=== PATIENT | male | born 1960 | race Hispanic/Latino ===

== ENCOUNTER 2017-03-12 08:05 | Observation (INO) | payer BC ==
[2017-03-12 08:12] VITALS: BMI 33.5
[2017-03-12 08:24] LABS: ADD MANUAL DIFF? NO
[2017-03-12 08:27] LABS: BASO # 0.07 K/mm3 (0.0-2.0); BASO % 0.8 % (0.0-3.0); EOS # 0.3 (0.0-0.7); EOS % 3.7 % (1.5-5.0); GRAN # 6.01 (1.4-6.5); GRAN % 66.9 % (50.0-68.0); HEMATOCRIT 45.9 % (42.0-52.0); LYMPH % 22.4 % (22.0-35.0); MEAN CELL VOLUME 94.8 fL (80.0-105.0); MEAN CORPUSCULAR HEMOGLOBIN 32.6 pg (25.0-35.0); MEAN CORPUSCULAR HGB CONC 34.4 g/dl (31.0-37.0); MEAN PLATELET VOLUME 9.5 fl (7.0-11.0); MONO # 0.6 (0.1-0.6); MONO % 6.2 % (1.0-6.0); PLATELET COUNT 279 10^3/uL (120.0-450.0); RED CELL DISTRIBUTION WIDTH 12.2 % (11.5-14.5)
[2017-03-12 08:36] LABS: ALB/GLOB RATIO 1.4 (1.1-1.8); ALKALINE PHOSPHATASE 54 U/L (38-133); ALT/SGPT 49 U/L (7-56); AST/SGOT 35 U/L (15-59); BILIRUBIN,TOTAL 0.9 mg/dL (0.2-1.3); BLOOD UREA NITROGEN 17 mg/dL (7-21); CALCIUM 9.3 mg/dL (8.4-10.5); CARBON DIOXIDE 29 mmol/L (21-33); CHLORIDE 101 mmol/L (98-107); GFR AFRICAN-AMERICAN > 60; GLUCOSE,RANDOM 117 mg/dL (70-110); MAGNESIUM 2.1 mg/dL (1.7-2.2); POTASSIUM 4.7 mmol/L (3.6-5.0); SODIUM 137 mmol/L (132-148); TOTAL PROTEIN 7.2 g/dL (5.8-8.3)
--- NOTE | 2017-03-12 08:36 | ED PDOC ---
Arrival/HPI - General Time Seen by Provider: 03/12/17 08:11 Historian: Patient - History of Present Illness Narrative History of Present Illness (Text): 03/12/17 08:12 A 56 year old male, newly diagnosed with hypertension and recently placed on Metoprolol, Lisinopril and Aspirin, sent in to the emergency department by PMD for admission and cardiac evaluation by Dr. Roach. Patient complains of intermittent chest discomfort since yesterday. Patient denies any relieving or exacerbating factors. Patient notes generalized weakness but denies any fever, chills, nausea, vomiting, diarrhea, abdominal pain, shortness of breath, cough or any other complaints. PMD: Dr. Ramires Time/Duration: Other (Yesterday) Symptom Course: Unchanged Quality: Other Context: Other Past Medical History - Provider Review Nursing Documentation Reviewed: Yes Family/Social History - Physician Review Nursing Documentation Reviewed: Yes Family/Social History: No Known Family HX Allergies/Home Meds Allergies/Adverse Reactions: Allergies No Known Allergies Allergy (Verified 03/12/17 08:12) Home Medications: Home Meds Medication Instructions Recorded Confirmed Aspirin [Aspirin Chewable] 81 mg PO DAILY 03/12/17 03/12/17 Lisinopril [Zestril] 5 mg PO DAILY 03/12/17 03/12/17 Metoprolol Succinate XL [Toprol XL] 25 mg PO DAILY 03/12/17 03/12/17 Physical Exam - Physical Exam Narrative Physical Exam (Text): - Review of Systems Constitutional: (+) Generalized weakness absent: Weight Change, Fevers Eyes: Normal ENT: Normal Respiratory: Normal absent: SOB, Cough, Sputum Cardiovascular: (+) Chest pain absent: Palpitations, Syncope Gastrointestinal: Normal absent: Abdominal pain, Diarrhea, Nausea, Vomiting Genitourinary: Normal. absent: Dysuria, Frequency, Hematuria Musculoskeletal: Normal. absent: Arthralgias, Back Pain, Neck Pain Skin: Normal Neurological: Normal absent: Focal Weakness Endocrine: Normal Hemo/Lymphatic: Normal Psychiatric: Normal - Physical exam Patient appears age appropriate, speaking full sentences without difficulty - Systems Exam Head: Present: Atraumatic, Normocephalic Pupils: Present: PERRL Extraocular Muscles: Present: EOMI Conjunctiva: Present: Normal Mouth: Present: Moist Mucous Membranes Neck: Present: Normal Range of Motion. No: MIDLINE TENDERNESS, Paraspinal Tenderness Respiratory/Chest: Present: Clear to Auscultation, Good Air Exchange. No: Respiratory Distress, Accessory Muscle Use, Tachypnic Cardiovascular: Present: Regular Rate and Rhythm, Normal S1, S2, Peripheral Pulses Present. No: Murmurs Abdomen: Present: Normal Bowel Sounds, No: Tenderness, Peritoneal Signs, Rebound, Guarding, Distention Back: Present: Normal Inspection. No: Midline Tenderness, Paraspinal Tenderness Upper Extremity: Present: Normal Inspection. No: Cyanosis, Edema Lower Extremity: Present: Normal Inspection. No: Edema Neurological: Present: GCS=15, Speech Normal, cranial nerves II through XII fully intact with no cerebellar abnormality, neuro-sensory fully intact. No focal neurological deficits. Skin: Present: Warm, Dry, Normal Color. No: Rashes Lymphatic: Present: OX3, NI, NC Psychiatric: Present: Alert, Oriented x 3, Normal Insight, Normal Concentration Vital Signs Reviewed: Yes Vital Signs Temp Pulse Resp BP Pulse Ox 03/12/17 08:21 98.1 F 62 16 110/73 96 Temperature: Afebrile Blood Pressure: Normal Pulse: Regular Respiratory Rate: Normal Appearance: Positive for: Well-Appearing, Non-Toxic, Comfortable Pain Distress: None Mental Status: Positive for: Alert and Oriented X 3 Medical Decision Making ED Course and Treatment: 03/12/17 08:12 Impression: A 56 year old male with chest discomfort. Physical exam unremarkable. Plan: -- Chest xray -- EKG -- Labs -- Aspirin -- Reassess and disposition Progress Notes: EKG shows NSR at [address]-segment elevations, normal intervals. Interpreted by me. Report Date : 03/12/2017 09:37:11 Procedure: Chest xray Dictator : Payam Brown MD IMPRESSION: No active disease. 03/12/17 09:[address] per [address] Dewitt dw Dr. Horner, accepted tele/obs under his service pt in no distress at this time, aware of and agrees with plan - Lab Interpretations Lab Results: 03/12/17 08:10 03/12/17 08:10 Lab Results 03/12/17 08:10: Sodium 137, Potassium 4.7, Chloride 101, Carbon Dioxide 29, Anion Gap 12, BUN 17, Creatinine 0.7, Est GFR ( Amer) > 60, Est GFR (Non- Af Amer) > 60, Random Glucose 117 H, Calcium 9.3, Phosphorus 3.0, Magnesium 2.1 , Total Bilirubin 0.9, AST 35, ALT 49, Alkaline Phosphatase 54, Lactate Dehydrogenase 316 L, Total Creatine Kinase 56, Troponin I < 0.01, NT-Pro-B Natriuret Pep 33.2, Total Protein 7.2, Albumin 4.2, Globulin 3.0, Albumin/ Globulin Ratio 1.4 03/12/17 08:10: PT 10.8, INR 1.00, APTT 28.8 03/12/17 08:10: WBC 9.0, RBC 4.84, Hgb 15.8, Hct 45.9, MCV 94.8, MCH 32.6, MCHC 34.4, RDW 12.2, Plt Count 279, MPV 9.5, Gran % 66.9, Lymph % (Auto) 22.4, [place] % (Auto) 6.2 H, Eos % (Auto) 3.7, Baso % (Auto) 0.8, Gran # 6.01, Lymph # 2.0, [place] # 0.6, Eos # 0.3, Baso # 0.07 - RAD Interpretation Radiology Orders: 03/12/17 08:12 CHEST PORTABLE [RAD] Stat - Medication Orders Current Medication Orders: Sodium Chloride (Sodium Chloride 0.9%) 1,000 mls @ 100 mls/hr IV .Q10H CARINA Discontinued Medications Aspirin (Aspirin Chewable) 324 mg PO STAT STA Stop: 03/12/17 08:13 Last Admin: 03/12/17 08:29 Dose: 324 mg - Scribe Statement The provider has reviewed the documentation as recorded by the Agapito Montero Provider Scribe Attestation: All medical record entries made by the Agapito were at my direction and personally dictated by me. I have reviewed the chart and agree that the record accurately reflects my personal performance of the history, physical exam, medical decision making, and the department course for this patient. I have also personally directed, reviewed, and agree with the discharge instructions and disposition. Disposition/Present on Arrival - Present on Arrival Any Indicators Present on Arrival: No - Disposition Have Diagnosis and Disposition been Completed?: Yes Diagnosis: Chest pain Disposition: HOSPITALIZED Disposition Time: 09:45 Patient Plan: Observation Patient Problems: Current Active Problems Problem Status Onset Chest pain Acute Condition: FAIR Discharge Instructions (ExitCare): Chest Pain (ED) Referrals: Gabriel Ramires MD [Primary Care Provider] - Follow up with primary
[2017-03-12 08:38] LABS: PARTIAL THROMBOPLASTIN TIME 28.8 Seconds (23.7-30.8)
[2017-03-12 08:48] LABS: TROPONIN I < 0.01 ng/mL
--- NOTE | 2017-03-12 09:38 | RAD ---
HISTORY: cough COMPARISON: No prior. FINDINGS: LUNGS: No active pulmonary disease. PLEURA: No significant pleural effusion identified, no pneumothorax apparent. CARDIOVASCULAR: Normal. OSSEOUS STRUCTURES: No significant abnormalities. VISUALIZED UPPER ABDOMEN: Normal. OTHER FINDINGS: None. IMPRESSION: No active disease.
[2017-03-12] MEDS: Sodium Chloride 0.9% 1,000 ML IV SCH (11:39)
--- NOTE | 2017-03-12 14:57 | CARD ---
APPROVED REPORT EKG Measurement Heart [id number] 142P2 [id number] <Conclusion> Normal sinus rhythm Normal ECG
[2017-03-12] MEDS ORDERED: Pneumococcal 23-Valent Vaccine IM ONE (16:03)
--- NOTE | 2017-03-12 20:27 | HP ---
CHIEF COMPLAINT AND HISTORY OF PRESENT ILLNESS: This is a 56-year-old male who is coming into the [facility] complaining of substernal atypical chest pain. He said that he has been having discomfort and had gone to see his primary care doctor, Dr. Ramires. He had recently been started on blood pressure medications. He was sent by Dr. Ramires for further evaluation. He has no complaints of any shortness of breath, no fevers or chills. He was placed on metoprolol, lisinopril and aspirin. He says the p ain has been intermittent. Denies any associated diaphoresis or shortness of breath, no headaches or dizziness. Nothing makes the pain better or worse. REVIEW OF SYSTEMS: All other review of symptoms are within normal limits except as mentioned. ALLERGIES: No known drug allergies. HOME MEDICATIONS: Aspirin, lisinopril, metoprolol. FAMILY HISTORY: No heart problems in the family. SOCIAL HISTORY: He does smoke actively half a pack to a pack per day. PAST MEDICAL HISTORY: Hypertension. PHYSICAL EXAMINATION: VITAL SIGNS: Temperature is 98.1, pulse of 56, blood pressure 136/84, respirations 16, O2 saturation 96%. Height is 5 feet 4, weight is 195 pounds, BMI is 33.5. GENERAL: Patient lying in bed, flat, and in no apparent distress. HEAD AND NECK EXAM: Atraumatic, normocephalic. Conjunctivae are pink. Throat clear and mouth with moist mucosa. Oropharynx benign. EYES: Extraocular movements are intact. PERRLA. NECK: Supple. No JVD, thyromegaly, or adenopathy. No bruits. HEART: S1 and S2 regular rate and rhythm. No murmurs, rubs, or gallops. LUNGS: Clear to auscultation bilaterally. No wheezing rales or rhonchi appreciated. No retraction s on exam. ABDOMEN: Soft, nontender, nondistended. Bowel sounds are positive in all quadrants. No rebound. No hepatosplenomegaly. EXTREMITIES: No cyanosis, clubbing, or edema. NEURO: No facial asymmetry, tongue is midline, no uvula deviation. Power is 5/5 in upper extremity and 5/5 in lower extremity. Sensation is normal in upper extremity and lower extremity. PSYCH: Awake, alert, oriented x3. No anxiety or depression symptoms. Good insight. Normal affec t. : No CVA tenderness VASCULAR: 2+ pulses in carotid and pedal pulses. SKIN: No erythema or abnormal nodules noted. SPINE: Normal curvature. LYMPHADENOPATHY: No anterior cervical or posterior cervical adenopathy. No inguinal adenopathy. LABORATORY DATA: White count of 9.0, hemoglobin 15.8. Troponin 0.01. Chest x-ray done shows no active disease. EKG shows sinus rhythm at 61, no ST-T changes. ASSESSMENT: 1. Chest pain. 2. Hypertension. 3. Obese with a body mass index of 33.5. PLAN: The patient is currently comfortable. He is going to be admitted for chest pain. I will get Dr. Roach to evaluate the patient. The patient is going to be on aspirin and metoprolol. He has be en placed on lisinopril for his hypertension. First troponin has been negative. Second troponin is pending. He will be on a regular diet. We will await further input from Dr. Roach. Brian Horner MD cc: [id number] TT: 03/12/2017 20:26:37 fl
--- NOTE | 2017-03-12 22:03 | CP.PCM.PN ---
Subjective - Date & Time of Evaluation Date of Evaluation: 03/12/17 Time of Evaluation: 22:03 - Subjective Subjective: S:Patient was seen at bedside because he wanted something for sleep. He has no other complaints at this time. Denies chest pain, sob , head ache , dizziness, nausea, sweating , palpitation. ROS negative except as mentioned above. Pertinent medical record was reviewed. O: Last Vital Signs 3 Temp 98.1 F 03/12/17 15:43 Pulse 70 03/12/17 21:29 Resp 17 03/12/17 19:16 BP 143/85 03/12/17 21:29 Pulse Ox 94 L 03/12/17 19:16 Awake, alert, overweight person not in acute distress. LUNGS: Normal breathing pattern. NEURO:Speech normal. A:Adjustment Insomnia. P:Ambien 10 mg PO x 1. Objective - Vital Signs/Intake and Output Vital Signs (last 24 hours): Temp Pulse Resp BP Pulse Ox 98.1 F 70 17 143/85 94 L 03/12/17 15:43 03/12/17 21:29 03/12/17 19:16 03/12/17 21:29 03/12/17 19:16 - Medications Medications: Current Medications Aspirin (Ecotrin) 81 mg PO DAILY [facility] Last Admin: 03/12/17 11:39 Dose: 81 mg Sodium Chloride (Sodium Chloride 0.9%) 1,000 mls @ 100 mls/hr IV .Q10H [facility] Last Admin: 03/12/17 11:39 Dose: 100 mls/hr Lisinopril (Zestril) 5 mg PO DAILY [facility] Last Admin: 03/12/17 12:04 Dose: 5 mg Metoprolol Tartrate (Lopressor) 25 mg PO Q12 [facility] Last Admin: 03/12/17 21:29 Dose: 25 mg - Labs Labs: PT 10.8 Seconds (9.9-11.8) 03/12/17 08:10 INR 1.00 (0.93-1.08) 03/12/17 08:10 APTT 28.8 Seconds (23.7-30.8) 03/12/17 08:10
[2017-03-13] MEDS: Sodium Chloride 0.9% 1,000 ML IV SCH ×3 (04:55→10:35)
--- NOTE | 2017-03-13 10:31 | PN ---
DATE: 03/13/2017 SUBJECTIVE: The patient has no complaints of any chest pain or shortness of breath, no headaches or dizziness. PHYSICAL EXAMINATION: VITAL SIGNS: Temperature is 98.3, pulse of 61, blood pressure 97/59, respirations 22. GENERAL: The patient comfortable, in no acute distress. HEENT: Anicteric sclerae. Moist mucosa. NECK: No JVD or adenopathy. CARDIAC: S1/S2. No murmurs. No rubs. Regular. RESPIRATORY: Clear to auscultation bilaterally. No wheezes, rales, or rhonchi. Good air entry. ABDOMEN: Bowel sounds are positive, soft, nontender, and nondistended. EXTREMITIES: No edema. Has 1+ pulses. LABORATORY DATA: White count of 9.0, hemoglobin 15.8, creatinine 0.7. ASSESSMENT: 1. Chest pain. 2. Hypertension. 3. Obesity with a body mass index of 35. PLAN: The patient is on aspirin and metoprolol. He is going to continue with lisinopril. He is on a regular diet. He is being seen by Dr. Roach. I did speak to Dr. Roach and the patient is going to have a cardiac cath to be done tomorrow. His troponin has been negative this morning. Brian Horner MD cc: [id number] TT: 03/13/2017 10:30:33 Confirmation # [id number] Dictation # [id number] tn
--- NOTE | 2017-03-13 14:13 | CON ---
DATE: 03/13/2017 INDICATIONS: Chest pain, dyspnea on exertion. HISTORY OF PRESENT ILLNESS: This is a 56-year-old male smoker with about a month history of chest discomfort described as aching or pressure-like, sometimes associated with dyspnea on exertion. Often the chest discomfort is exertional in nature. It is not pleuritic. There is no diaphoresis. There is no orthopnea, PND, syncope, presyncope, lightheadedness, dizziness, vertigo, palpitations, edema, claudication, fever, chills, cough, sputum production, hemoptysis, abdominal pain, nausea, vomiting, diarrhea, constipation, or melena. PAST MEDICAL HISTORY: Notable for hypertension which was recently diagnosed. He has not had regular medical followup over the years. His lipids have been elevated in the past. He has a family history of heart disease. He is a cigarette smoker. There is no history of rheumatic fever, myocardial infarction , congestive heart failure, arrhythmia, stroke, TIA or gout. There is no history of diabetes. MEDICATIONS: At the time of admission included aspirin, metoprolol and lisinopril just started. ALLERGIES: There are no medication allergies reported. SOCIAL HISTORY: He lives at home. 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 He smokes about a half pack of cigarettes per day. He does not drink alcohol excessively. FAMILY HISTORY: Notable for heart disease. REVIEW OF SYSTEMS: A 10-point review of systems is otherwise unremarkable except as noted above. PHYSICAL EXAMINATION: GENERAL: He is a well-developed male sitting on his bed in telemetry, in no acute distress. VITAL SIGNS: Notable for sinus rhythm at 67 beats per minute. He is afebrile. Blood pressure 103/66, respirations 16-22, O2 sat 94%-99% on room air. HEENT: Reveals no neck vein distention, thyromegaly, or carotid bruits. Mucous membranes are moist. Conjunctivae are pink. NECK: Supple. LUNGS: [place] clear. HEART: Revealed normal first and second heart sounds without murmur, gallop, rub or click. ABDOMEN: Soft, bowel sounds present. No mass, organomegaly, tenderness, rebound, or guarding. No CVA tenderness. No palpable abdominal aortic aneurysm. EXTREMITIES: Revealed no cyanosis, clubbing, or edema. NEUROLOGIC: He was awake, alert, oriented and intact. Pulses are full throughout. PSYCHIATRIC: Normal as to mood and affect. SKIN: Warm and dry. No rash or cellulitis. LABORATORY AND IMAGING: EKG demonstrates regular sinus rhythm, right ventricular conduction delay, within normal limits. Chest x-ray reveals no active disease. CBC is unremarkable. PT, INR, PTT unremarkable. Electrolytes , BUN, creatinine, blood sugar, LFTs, CK, 2 troponins, BNP are all unremarkable. IMPRESSION: The patient is a 56-year-old man with risk factors including hypertension, cigarette smoking and a family history of heart disease who presents with a 1-month history of chest pain with many typical features, often exertional associated with shortness of breath. His EKG is benign and 2 troponins are negative. At this time, I have recommended cardiac catheterization to define his coronary anatomy. I will get an echocardiogram and a lipid profile. I will arrange a cardiac catheterization for the morning. We will continue aspirin, metoprolol and lisinopril. I will add Plavix with a loading dose. I have discussed the case with Dr. Horner. Will make additional recommendations based on his clinical course. He has been advised to stop smoking. Additional recommendations will be forthcoming. Tarik Roach MD cc: [id number] TT: 03/13/2017 14:13:09 Confirmation # [id number] Dictation # [id number] renae CHANG
--- NOTE | 2017-03-13 22:30 | CARD ---
APPROVED REPORT EKG Measurement Heart [id number] [place] 142P6 [id number] <Conclusion> Normal sinus rhythm Incomplete right bundle branch block Borderline ECG
[2017-03-14 06:05] VITALS: O2SAT 95
[2017-03-14 07:11] LABS: CHOLESTEROL 192 mg/dL (130-200)
[2017-03-14] MEDS ORDERED: Lidocaine 2% Inj (20ml) ONE (09:47)
[2017-03-14] MEDS ORDERED: Iohexol 350mgl/ml 50 ML ONE (10:07)
[2017-03-14] MEDS ORDERED: Iodixanol 320 MG/ML 200 ML BOTTLE IV ONE (10:07)
[2017-03-14] MEDS ORDERED: Midazolam 2 MG/2 ML VIAL ONE ×2 (10:56→11:23)
[2017-03-14] MEDS ORDERED: Sodium Chloride 0.9% 1,000 ML IV SCH (11:45)
--- NOTE | 2017-03-14 12:54 | DS ---
The patient is a 56-year-old male who had come in to the hospital because of chest pain. The patient is scheduled for a cardiac cath. He had troponins that were negative x 3. The patient's cholester ol was reviewed. He is comfortable. He says he was having dizziness before. He was recently diagno sed with hypertension. He has no fevers or chills. PHYSICAL EXAMINATION: VITAL SIGNS: Temperature is 98.9, pulse of 63. Blood pressure is 120/79, respirations 20, O2 satura tion 95%. GENERAL: The patient is comfortable, in no acute distress. HEENT: Anicteric sclerae. Moist mucosa. NECK: No JVD or adenopathy. CARDIAC: S1/S2. No murmurs. No rubs. Regular. RESPIRATORY: Clear to auscultation bilaterally. No wheezes, rales, or rhonchi. Good air entry. ABDOMEN: Bowel sounds are positive, soft, nontender, and nondistended. EXTREMITIES: No edema. Has 1+ pulses. ASSESSMENT: 1. Chest pain. 2. Hypertension. 3. Obese with a body mass index of 32. PLAN: The patient is currently comfortable. He is going for a cardiac cath later this morning. He is on Zestril for his hypertension. He is on metoprolol. He was given aspirin. An echo has been or dered. We will await for input from the cardiac cath. If no intervention is required and he is stab le, we will be able to discharge the patient home later today. Otherwise, he will stay until tomorro w. He is going to follow up with his primary care doctor, Dr. Ramires, in 1-2 weeks. CONDITION: Stable. ACTIVITIES: Increase as tolerated. Brian Horner MD cc: [id number] TT: 03/14/2017 08:54:36 jn
--- NOTE | 2017-03-14 14:53 | PN ---
DATE: 03/14/2017 SUBJECTIVE: The patient is seen lying in bed on telemetry. He is comfortable here. He has had no f urther chest pain. He is scheduled for cardiac catheterization today. CURRENT MEDICATIONS: Include aspirin, Plavix, metoprolol and Zestril. OBJECTIVE: GENERAL: He is a middle-aged man who appears comfortable at rest. VITAL SIGNS: Blood pressure 124/76 with a pulse of 80 in sinus, respirations are 16. He is afebrile . HEENT: No JVD. CHEST: A few scattered rhonchi. HEART: PMI normal position. No pathologic murmur or gallops noted. ABDOMEN: Soft and nontender, normoactive bowel sounds. EXTREMITIES: No edema. DIAGNOSTIC DATA: Cardiac enzymes were negative. Cholesterol is 192 with an LDL of 111 and triglycer ides 139, HDL is 53. IMPRESSION: 1. Chest pain with multiple cardiac risk factors for cardiac catheterization later today to assess f or presence of coronary disease and its extent. 2. Multiple cardiac risk factors given hypertension, mild hyperlipidemia and tobacco abuse. RECOMMENDATIONS: Further recommendations will be made after review of his angiogram. In the interim , aggressive risk factor control was advised, especially smoking abstinence. We will make further re commendations as appropriate. Winston Santos MD cc: [id number] TT: 03/14/2017 14:52:47 Confirmation # [id number] Dictation # [id number] renae
--- NOTE | 2017-03-14 17:51 | CARDCATH ---
PROCEDURE DATE: 03/14/2017 PROCEDURE: 1. Selective left and right coronary angiography. 2. Left ventriculography. 3. Right femoral arteriography. 4. Mynx deployment. HISTORY: This is a 56-year-old man with multiple cardiac risk factors, admitted with chest discomfor t. Cardiac catheterization was recommended. INDICATION: Exertional chest pain. FINDINGS: HEMODYNAMICS: The aortic pressure was 120/76, the left ventricular pressure 120/20. CORONARY ANATOMY: 1. The left main stem was normal. 2. The left anterior descending artery had 30% lesions in the early mid portion of the vessel. The diagonal branches were free of disease. 3. Left circumflex artery was small to moderate in size with no evidence of significant disease. 4. The right coronary artery was dominant and moderate sized. This had no evidence of significant d isease either. LEFT VENTRICULOGRAPHY: 1. Hand injection was performed in the left ventricle revealing normal wall motion with an ejection fraction of 70%. RIGHT FEMORAL ARTERIOGRAPHY: Right femoral arteriogram revealed no evidence of significant disease. The puncture site appeared to be in the proximal SFA. The puncture site was then closed with deploy ment of a Mynx device. CONCLUSION: 1. Mild LAD disease. 2. Normal LV function. RECOMMENDATIONS: Aggressive risk factor control is advised. Workup for noncardiac causes of chest p ain was recommended. Winston Santos MD cc:Gabriel Ramires MD [id number] TT: 03/14/2017 17:50:55 sn
[2017-03-14 18:24] VITALS: BP 138/79; PULSE 99; RESP 22; TEMP 98.9
--- NOTE | 2017-03-15 08:36 | CARD ---
APPROVED REPORT EXAM: Two-dimensional and M-mode echocardiogram with Doppler and color Doppler. Other Information Quality : FairRhythm : INDICATION Chest Pain ANTONIO 2D DIMENSIONS Left Atrium (2D)3.0 (1.6-4.0cm)IVSd1.1 (0.7-1.1cm) LVDd3.3 (3.9-5.9cm)PWd1.1 (0.7-1.1cm) LVDs2.4 (2.5-4.0cm)FS (%) 28.3 % LVEF (%)56.0 (>50%) M-Mode DIMENSIONS Aortic Root3.20 (2.2-3.7cm)Aortic Cusp Exc.2.10 (1.5-2.0cm) Aortic Valve AoV Peak Ntykulbn038.0cm/s Mitral Valve MV E Jhbkybaj39.9cm/sMV A Dnpdjlmr79.5cm/sE/A ratio0.7 TDI Lateral E' Peak V11.30cm/sMedial E' Peak V6.92cm/sE/Lateral E'6.0 E/Medial E'9.8 Pulmonary Valve PV Peak Tyxizkjb82.3cm/sPV Peak Grad.3mmHg Tricuspid Valve TR Peak Mjuowceg363eb/sRAP LFKPSNFG45scHlKE Peak Gr.20mmHg DOWU19heRs LEFT VENTRICLE The left ventricle is normal size. There is normal left ventricular wall thickness. The left ventricular function is normal. The left ventricular ejection fraction is within the normal range. There is normal LV segmental wall motion. RIGHT VENTRICLE The right ventricle is normal size. ATRIA The left atrium size is normal. The right atrium size is normal. The interatrial septum is intact with no evidence for an atrial septal defect. AORTIC VALVE The aortic valve is normal in structure. MITRAL VALVE The mitral valve is normal in structure. TRICUSPID VALVE The tricuspid valve is normal in structure. There is trace tricuspid regurgitation. PULMONIC VALVE The pulmonic valve is not well visualized. GREAT VESSELS The aortic root is normal in size. PERICARDIAL EFFUSION There is no pericardial effusion. <Conclusion> The left ventricle is normal size. There is normal left ventricular wall thickness. The left ventricular function is normal.
== END 2017-03-14 18:29 | disposition home or self-care (01) ==
LOC: ED 08:05 → ERH 09:55 → 2RNO 17:40 → ERH 17:42 → 2RNO 21:09
PROVIDERS: ADMIT Internal Medicine Nephrology; ATTEND Internal Medicine Nephrology
DX: R07.89 Other chest pain (principal); F17.210 Nicotine dependence, cigarettes, uncomplicated; I10 Essential (primary) hypertension; R42 Dizziness and giddiness; E78.5 Hyperlipidemia, unspecified; F51.02 Adjustment insomnia; R53.1 Weakness; E66.9 Obesity, unspecified; Z68.35 Body mass index [BMI] 35.0-35.9, adult; Z82.49 Family history of ischemic heart disease and other diseases of the circulatory system
CPT/HCPCS: 36415; 71010; 80053; 80061; 82550; 83615; 83735; 83880; 84100; 84484; 85025; 85610; 85730; 93005; 93306; 93458; 99152; 99285; C1760; C1769; C2629; G0378; J1644; J2250; J3010; J7030; J7040